=== PATIENT | female | born 1980 | race Caucasian/White ===

== ENCOUNTER 2018-11-15 11:53 | Emergency (ER) | payer OTHER ==
[~2018-11-15] VITALS: Ht 167.6 cm; Wt 108.4 kg
[2018-11-15] MEDS ORDERED: LABETALOL HCL100 MG PO (12:02)
[2018-11-15 12:25] LABS: ABSOLUTE NEUTROPHILS 2.8 thou/uL (1.4-8.2); BASOPHILS 0.6 % (0.0-2.0); HEMATOCRIT 36.3 % (37.0-47.0); HEMOGLOBIN 11.9 gm/dL (12.0-15.0); LYMPHOCYTES 24.1 % (24.0-44.0); MCH 27.3 pg (26.0-34.0); MCHC 32.8 g/dL (28.0-37.0); MONOCYTES 7.1 % (1.0-8.0); PLATELET COUNT 282 thou/uL (150-400); POLYS 67.2 % (36.0-66.0); RBC 4.37 mil/uL (4.20-5.00); RDW 14.5 % (10.5-14.5); WBC 4.2 thou/uL (4.0-11.0)
[2018-11-15 12:42] LABS: CALCIUM 8.6 mg/dL (8.5-10.1); CREATININE 1.1 mg/dL (0.6-1.0); POTASSIUM 3.3 mmol/L (3.5-5.1)
--- NOTE | 2018-11-15 13:48 | EKG ---
[address] [address] ELECTROCARDIOGRAM REPORT Name: PANCHITO OTERO Room #: [facility].R.#: [id number] Admission: Attend Phys: Discharge: Date of : 84 Report #: [id number] THIS REPORT FOR: //name// [facility] ED Test Date: 2018-11-15 Test Time: 12:02:15 Pat Name: PANCHITO OTERO Department: Room: Gender: F Management Manager: SHELBI : 1980 Requested By: Vimal Bermudez Order Number: [id number] MD: Amor Monique Measurements Intervals [place] Rate: 67 P: 8 OR: 139 QRS: 26 QRSD: 112 T: 15 QT: 419 QTc: 443 Interpretive Statements Sinus rhythm Borderline intraventricular conduction delay No previous ECG available for comparison Electronically Signed On 11-15-2018 13:47:51 CDT by Amor Monique [email or web address] <ELECTRONICALLY SIGNED> By: Amor Monique MD 11/15/18 1347 1202 1202 Amor Monique MD /EPI
[2018-11-15 14:47] LABS: URINE BILIRUBIN NEGATIVE (Negative); URINE BLOOD NEGATIVE (Negative); URINE CLARITY CLEAR; URINE COLOR YELLOW; URINE GLUCOSE-RANDOM* NEGATIVE (Negative); URINE KETONES NEGATIVE (Negative); URINE LEUKOCYTES-REFLEX TRACE (Negative); URINE NITRITE-REFLEX NEGATIVE (Negative); URINE PROTEIN (DIPSTICK) NEGATIVE (Negative); URINE SPECIFIC GRAVITY <= 1.005 (1.005-1.035); URINE UROBILINOGEN 0.2 E.U./dl (0.2-1.0)
[2018-11-15 15:35] VITALS: BP 165/98
[2018-11-15] MEDS ORDERED: PROCARDIA XL30 MG PO (16:07)
== END 2018-11-15 15:35 | disposition home or self-care (01) ==
LOC: ER 11:53
PROVIDERS: Emergency Medicine; Nurse Practitioner Family
DX: O26.891 Other specified pregnancy related conditions, first trimester (principal); R42 Dizziness and giddiness; R00.1 Bradycardia, unspecified; O10.911 Unspecified pre-existing hypertension complicating pregnancy, first trimester; Z3A.01 Less than 8 weeks gestation of pregnancy

== ENCOUNTER 2018-12-10 17:08 | Emergency (ER) | payer OTHER ==
[~2018-12-10] VITALS: Ht 167.6 cm; Wt 108.4 kg
[~2018-12-10 17:08] MED LIST: LABETALOL HCL100 MG PO; PROCARDIA XL30 MG PO
[2018-12-10 17:17] VITALS: BP 136/95
[2018-12-10 17:49] LABS: URINE BLOOD 3+ (Negative); URINE CLARITY CLOUDY; URINE COLOR YELLOW; URINE GLUCOSE-RANDOM* NEGATIVE (Negative); URINE KETONES NEGATIVE (Negative); URINE LEUKOCYTES-REFLEX NEGATIVE (Negative); URINE NITRITE-REFLEX NEGATIVE (Negative); URINE PROTEIN (DIPSTICK) 1+ (Negative); URINE SPECIFIC GRAVITY 1.025 (1.005-1.035)
[2018-12-10 17:52] LABS: ICTOTEST (BILI CONFIRMATORY) Negative (Negative); URINE BILIRUBIN NEGATIVE (Negative)
[2018-12-10 18:00] LABS: CASTS None Seen /LPF (None Seen); SQUAMOUS None Seen /LPF (0-3); URINE RBC >20 Many /HPF (0-2)
[2018-12-10 18:01] LABS: BACTERIA-REFLEX None Seen /HPF (None Seen); CALCIUM OXALATE 4-10 Moderate /LPF (None Seen); URINE WBC-REFLEX 0-5 Rare /HPF (0-5)
[2018-12-10 18:04] LABS: ABSOLUTE NEUTROPHILS 4.9 thou/uL (1.4-8.2); BASOPHILS 0.5 % (0.0-2.0); EOSINOPHILS 1.7 % (0.0-3.0); HEMATOCRIT 36.3 % (37.0-47.0); HEMOGLOBIN 11.7 gm/dL (12.0-15.0); LYMPHOCYTES 20.4 % (24.0-44.0); MCH 26.2 pg (26.0-34.0); MCHC 32.4 g/dL (28.0-37.0); MCV 80.9 fL (80.0-100.0); MONOCYTES 7.3 % (1.0-8.0); PLATELET COUNT 297 thou/uL (150-400); POLYS 70.1 % (36.0-66.0); RBC 4.48 mil/uL (4.20-5.00); RDW 14.4 % (10.5-14.5)
[2018-12-10 18:11] LABS: CALCIUM 8.8 mg/dL (8.5-10.1); CREATININE 1.3 mg/dL (0.6-1.0); POTASSIUM 3.5 mmol/L (3.5-5.1)
[2018-12-10] MEDS ORDERED: MEDROXYPROGESTER5 MG PO (21:22)
[2018-12-10] MEDS ORDERED: MUPIROCIN15 GM TOP (21:22)
== END 2018-12-10 21:35 | disposition home or self-care (01) ==
LOC: ER 17:08
PROVIDERS: Physician Assistant
DX: O72.2 Delayed and secondary postpartum hemorrhage (principal); O90.89 Other complications of the puerperium, not elsewhere classified; N83.202 Unspecified ovarian cyst, left side; O16.5 Unspecified maternal hypertension, complicating the puerperium

== ENCOUNTER 2019-06-15 03:41 | Emergency (ER) | payer OTHER ==
[~2019-06-15] VITALS: Ht 167.6 cm; Wt 108.9 kg
[~2019-06-15 03:41] MED LIST changes: +MEDROXYPROGESTER5 MG PO; +MUPIROCIN15 GM TOP
[2019-06-15 04:20] LABS: ABSOLUTE NEUTROPHILS 8.9 thou/uL (1.4-8.2); BASOPHILS 0.3 % (0.0-2.0); EOSINOPHILS 0.6 % (0.0-3.0); HEMATOCRIT 37.9 % (37.0-47.0); HEMOGLOBIN 11.8 gm/dL (12.0-15.0); LYMPHOCYTES 7.2 % (24.0-44.0); MCH 23.7 pg (26.0-34.0); MCHC 31.2 g/dL (28.0-37.0); MCV 76.1 fL (80.0-100.0); MONOCYTES 5.4 % (1.0-8.0); PLATELET COUNT 264 thou/uL (150-400); POLYS 86.5 % (36.0-66.0); RBC 4.98 mil/uL (4.20-5.00); RDW 15.9 % (10.5-14.5); WBC 10.3 thou/uL (4.0-11.0)
[2019-06-15 04:25] LABS: CALCIUM 8.2 mg/dL (8.5-10.1); POTASSIUM 3.6 mmol/L (3.5-5.1)
[2019-06-15 04:30] LABS: ALBUMIN 3.3 g/dL (3.4-5.0); TOTAL BILIRUBIN 0.3 mg/dL (<0.1-1.0); TOTAL PROTEIN 7.3 g/dL (6.4-8.2)
[2019-06-15] MEDS ORDERED: ZOFRAN ODT4 MG PO (05:03)
[2019-06-15] MEDS ORDERED: PROCARDIA XL30 MG PO (05:08)
[2019-06-15 05:22] VITALS: BP 176/91
== END 2019-06-15 05:20 | disposition home or self-care (01) ==
LOC: ER 03:41
PROVIDERS: Emergency Medicine
DX: R10.11 Right upper quadrant pain (principal); R11.0 Nausea; R19.7 Diarrhea, unspecified; I10 Essential (primary) hypertension

== ENCOUNTER 2019-06-16 04:06 | Emergency (ER) | payer OTHER ==
[~2019-06-16] VITALS: Ht 167.6 cm; Wt 108.9 kg
[~2019-06-16 04:06] MED LIST changes: +ZOFRAN ODT4 MG PO
[2019-06-16 05:38] VITALS: BP 136/86
== END 2019-06-16 05:49 | disposition home or self-care (01) ==
LOC: ER 04:06
DX: R51 Headache (principal); I10 Essential (primary) hypertension; Z79.899 Other long term (current) drug therapy

== ENCOUNTER 2019-09-13 18:52 | Emergency (ER) | payer OTHER ==
[~2019-09-13] VITALS: Ht 177.8 cm; Wt 106.6 kg
[2019-09-13 19:25] LABS: URINE BILIRUBIN 1+ (Negative); URINE BLOOD 3+ (Negative); URINE CLARITY SL CLOUDY; URINE COLOR YELLOW; URINE GLUCOSE-RANDOM* NEGATIVE (Negative); URINE KETONES TRACE (Negative); URINE PROTEIN (DIPSTICK) 2+ (Negative)
[2019-09-13 19:26] LABS: URINE LEUKOCYTES-REFLEX 2+ (Negative); URINE NITRITE-REFLEX POSITIVE (Negative)
[2019-09-13 19:27] LABS: ICTOTEST (BILI CONFIRMATORY) Negative (Negative)
[2019-09-13 20:11] LABS: BACTERIA-REFLEX >30 Many /HPF (None Seen); MUCUS 0-3 Light strn/LPF (None Seen); SQUAMOUS >10 Many /LPF (0-3)
[2019-09-13 20:12] LABS: CASTS None Seen /LPF (None Seen); CRYSTALS None Seen /LPF (None Seen); URINE WBC-REFLEX >25 Many /HPF (0-5)
[2019-09-13 20:13] LABS: URINE RBC >20 Many /HPF (0-2)
[2019-09-13] MEDS ORDERED: KEFLEX500 M1 PO (20:20)
[2019-09-13] MEDS ORDERED: BACTRIM DS TAB1 EACH PO (20:20)
[2019-09-13 20:46] VITALS: BP 124/89
== END 2019-09-13 20:45 | disposition home or self-care (01) ==
LOC: ER 18:52
PROVIDERS: Emergency Medicine
DX: L03.317 Cellulitis of buttock (principal); N39.0 Urinary tract infection, site not specified; I10 Essential (primary) hypertension; Z79.899 Other long term (current) drug therapy

== ENCOUNTER 2019-12-25 10:06 | Emergency (ER) | payer OTHER ==
[~2019-12-25] VITALS: Ht 167.6 cm; Wt 107.5 kg
[~2019-12-25 10:06] MED LIST changes: +BACTRIM DS TAB1 EACH PO; +KEFLEX500 M1 PO
[2019-12-25 10:50] LABS: ABSOLUTE NEUTROPHILS 5.8 thou/uL (1.4-8.2); BASOPHILS 0.5 % (0.0-2.0); EOSINOPHILS 1.2 % (0.0-3.0); HEMATOCRIT 36.5 % (37.0-47.0); HEMOGLOBIN 11.7 gm/dL (12.0-15.0); MCH 25.4 pg (26.0-34.0); MCHC 32.1 g/dL (28.0-37.0); MCV 78.9 fL (80.0-100.0); MONOCYTES 6.1 % (1.0-8.0); PLATELET COUNT 339 thou/uL (150-400); POLYS 76.2 % (36.0-66.0); RBC 4.63 mil/uL (4.20-5.00); RDW 14.9 % (10.5-14.5); WBC 7.7 thou/uL (4.0-11.0)
[2019-12-25 10:59] LABS: ANION GAP 7 mmol/L (7-16); BUN 10 mg/dL (7-18); CALCIUM 8.5 mg/dL (8.5-10.1); CHLORIDE 104 mmol/L (98-107); CO2 31 mmol/L (21-32); CREATININE 1.1 mg/dL (0.6-1.0); GLUCOSE 96 mg/dL (74-106); POTASSIUM 3.3 mmol/L (3.5-5.1); SODIUM 142 mmol/L (136-145)
[2019-12-25 11:10] LABS: ALBUMIN 3.2 g/dL (3.4-5.0); SGOT 15 U/L (15-37); SGPT 25 U/L (30-65); TOTAL BILIRUBIN 0.5 mg/dL (0.2-1.0); TOTAL PROTEIN 7.4 g/dL (6.4-8.2); TROPONIN-I <0.06 ng/mL (<0.06)
[2019-12-25 11:50] LABS: URINE BILIRUBIN NEGATIVE (Negative); URINE BLOOD 3+ (Negative); URINE CLARITY CLOUDY; URINE COLOR YELLOW; URINE GLUCOSE-RANDOM* NEGATIVE (Negative); URINE KETONES NEGATIVE (Negative); URINE NITRITE-REFLEX NEGATIVE (Negative); URINE PROTEIN (DIPSTICK) NEGATIVE (Negative); URINE UROBILINOGEN 0.2 E.U./dl (0.2-1.0)
[2019-12-25 11:51] LABS: URINE LEUKOCYTES-REFLEX 3+ (Negative)
[2019-12-25 12:10] LABS: AMP/METHAMP Negative (Negative); BARBITURATES Negative (Negative); BENZODIAZEPINES Negative (Negative); COCAINE Negative (Negative); METHADONE Negative (Negative); OPIATES Negative (Negative); PCP Negative (Negative)
[2019-12-25 12:20] LABS: SQUAMOUS >10 Many /LPF (0-3)
[2019-12-25 12:21] LABS: AMORPHOUS URATES Moderate /LPF (None Seen); BACTERIA-REFLEX 1-9 Few /HPF (None Seen); CASTS None Seen /LPF (None Seen); URINE RBC None Seen /HPF (0-2); URINE WBC-REFLEX 6-15 Few /HPF (0-5)
[2019-12-25] MEDS ORDERED: KEFLEX500 M1 PO (12:35)
[2019-12-25 12:44] VITALS: BP 121/75
[2019-12-25] MEDS ORDERED: ONDANSETRON HCL4 M2 PO (12:52)
--- NOTE | 2019-12-25 16:05 | EKG ---
[facility] [place] [address] ELECTROCARDIOGRAM REPORT Name: PANCHITO OTERO ALBINO Room #: DEP [facility]#: [id number] Admission: 12/25/19 Attend Phys: Discharge: 12/25/19 Date of : 84 Report #: [id number] THIS REPORT FOR: cc: ALVINA Feldman family physician/PCP ALVINA Feldman family physician/PCP Chris Butterfield MD [facility] ~ THIS REPORT FOR: //name// [facility] ED Test Date: 2019-12-25 Test Time: 10:58:45 Pat Name: PANCHITO OTERO Department: Room: Gender: F Cable Maintainer: kkrajiv : 1980 Requested By: Rafael Reynolds Order Number: [id number] MD: Chris Butterfield Measurements Intervals [place] Rate: 69 P: 8 NM: 125 QRS: 37 QRSD: 104 T: 30 QT: 448 QTc: 480 Interpretive Statements Sinus rhythm Compared to ECG 11/15/2018 12:02:15 No significant changes Electronically Signed On 12-25-2019 16:05:46 CDT by Chirs Butterfield [email or web address] <ELECTRONICALLY SIGNED> By: Chris Butterfield MD, FACC 12/25/19 1605 1058 1058 Chris Butterfield MD, [facility] /EPI
== END 2019-12-25 12:44 | disposition home or self-care (01) ==
LOC: ER 10:06
PROVIDERS: Emergency Medicine; Nurse Practitioner
DX: N39.0 Urinary tract infection, site not specified (principal); R42 Dizziness and giddiness; I10 Essential (primary) hypertension; E11.9 Type 2 diabetes mellitus without complications; Z79.2 Long term (current) use of antibiotics; Z79.899 Other long term (current) drug therapy

== ENCOUNTER 2020-01-24 20:15 | Emergency (ER) | payer OTHER ==
[~2020-01-24] VITALS: Ht 167.6 cm; Wt 99.8 kg
[~2020-01-24 20:15] MED LIST changes: +ONDANSETRON HCL4 M2 PO
[2020-01-24 20:43] VITALS: BP 122/82
[2020-01-24] MEDS ORDERED: NORVASC 2.5 MG2.5 M1 PO (20:48)
[2020-01-24] MEDS ORDERED: HYDROCHLOROTHIA25 M2 PO (20:48)
[2020-01-24] MEDS ORDERED: PREDNISONE 20 M20 MG PO (20:57)
== END 2020-01-24 21:08 | disposition home or self-care (01) ==
LOC: ER 20:15
DX: M54.41 Lumbago with sciatica, right side (principal); I10 Essential (primary) hypertension; Z79.899 Other long term (current) drug therapy